=== PATIENT | female | born 1930 | race Caucasian/White ===

== ENCOUNTER → 2019-05-14 | Outpatient (CLI) | payer MEDICARE ==
[~2019-05-14] MED LIST: /LOR25TA PO; AMBI5TAB PO; AMBIEN PO; ASPI81TA26 PO; ASPI81TA85 PO; ASPI81TA90 PO; BRIM1OPD OU; BRIM2OPD OU; BRIMONIDINE OU; BUTR5DIS2 TD; CALC1TAB21 PO; CALCTAB68 PO; CARV12.5 PO; CELE40TA PO; CITA20TA6 PO; CORE25TA PO; COZA100T2 PO; CYCL10TA PO; DORZ2OPD OU; EXTR500C4 PO; FENO134C PO; GABA-843 PO; GABA100C PO; GABAPOW41 PO; HYDR12.56 PO; HYDR12CA PO; LATA0.0013 OU; LOSA100T50 PO; LOVAZA PO; LUMI0.01 OU; METF500T13 PO; METFORMIN PO; MIRA0.254 PO; MIRA0.5T PO; OMEG100011 PO; OMEG340C PO; OXYC1TAB23 PO; OXYC5CAP28 PO; PANT40TA2 PO; PERC5TAB12 PO; PERCOCET PO; PLAV1TAB2 PO; PLAVIX PO; PRAV40TA2 PO; PROT1TAB2 PO; TYLE325T5 PO; ULTR37.539 PO; VOLT1GEL15 TD; VOLT1GEL15 TOP; [UNRECOGNIZED DRUG - CODE] OS
--- NOTE | 2019-05-14 13:31 | REP ---
CT of the temporal bones without contrast Indication: Sensorineural hearing loss, unilateral, 1 ear, with restored hearing contralateral side. Comparison: None Technique: Axial CT of both temporal bones was performed without contrast. Right and left coronal and axial bone reformatted images were provided. Findings: On the right side, the external auditory canal is patent. The tympanic membrane is unremarkable. The middle ear cavity is clear. The ossicles are intact. The inner ear structures, including the semicircular canals, vestibule, and cochlea are unremarkable. The vestibular aqueduct is not enlarged. The right facial nerve has a normal course. The course of the ICA and position of the jugular bulb are normal. The right mastoid air cells are clear. On the left side, the external auditory canal is patent. The tympanic membrane is unremarkable. The middle ear cavity is clear. The ossicles are intact. The inner ear structures, including the semicircular canals, vestibule, and cochlea are unremarkable. The vestibular aqueduct is not enlarged. The left facial nerve has a normal course. The course of the ICA and position of the jugular bulb are normal. There is partial opacification of the left mastoid air cells inferiorly. No definite abnormality is seen within the visualized portion of the brain parenchyma. There is dense intracranial vascular calcification. The visualized paranasal sinuses are clear. Impression: Partial opacification of the left mastoid air cells inferiorly. Dense intracranial vascular calcification. Electronically Signed by Daphney Howell MD 05/14/2019 01:22 P
== END ==
LOC: M RAD 10:58
PROVIDERS: ATTEND Otolaryngology
DX: H90.A22 Sensorineural hearing loss, unilateral, left ear, with restricted hearing on the contralateral side (principal); I67.2 Cerebral atherosclerosis

== ENCOUNTER 2021-04-05 11:07 | Emergency (ER) | payer MEDICARE ==
[~2021-04-05] VITALS: Ht 147.3 cm; Wt 53.6 kg
[~2021-04-05 11:07] MED LIST changes: -ASPI81TA85 PO; +ASPI81TA86 PO; +CYCL-707 PO; -CYCL10TA PO; +GABA-282 PO; -GABA-843 PO
[2021-04-05] MEDS ORDERED: TRAM50TA2 PO (12:03)
[2021-04-05] MEDS ORDERED: OMEP40CA4 PO (12:03)
[2021-04-05] MEDS ORDERED: XANA0.25 PO (12:03)
[2021-04-05] MEDS ORDERED: AMLO1TAB24 PO (12:03)
[2021-04-05] MEDS ORDERED: ELIQ2.5T PO (12:03)
[2021-04-05] MEDS ORDERED: LEVO88TA3 PO (12:03)
[2021-04-05] MEDS ORDERED: FURO40TA2 PO (12:03)
[2021-04-05] MEDS ORDERED: COZA100T2 PO (12:03)
[2021-04-05 12:25] LABS: BASO # 0.1 10^3/uL (0.0-0.2); BASO % 0.6 % (0.0-1.0); EOS # 0.4 10^3/uL (0.0-0.5); EOS % 4.4 % (0.0-3.0); HEMATOCRIT 36.9 % (36.0-47.0); HEMOGLOBIN 11.6 g/dl (12.0-15.5); LYMPH % 22.1 % (24.0-44.0); MEAN CORPUSCULAR HEMOGLOBIN 29.9 pg (27.0-33.0); MEAN CORPUSCULAR HGB CONC 31.4 g/dl (32.0-36.5); MEAN CORPUSCULAR VOLUME 95.1 fl (80.0-96.0); MONO # 0.8 10^3/uL (0.0-0.8); MONO % 8.8 % (2.0-8.0); NEUTROPHILS # 5.7 10^3/uL (1.5-8.5); NEUTROPHILS % 63.9 % (36.0-66.0); PLATELET COUNT, AUTOMATED 244 10^3/uL (150-450); RED BLOOD COUNT 3.88 10^6/uL (4.00-5.40)
[2021-04-05 12:35] LABS: INR 1.36; PROTHROMBIN TIME 17.2 SECONDS (12.7-14.5)
[2021-04-05 12:36] LABS: PARTIAL THROMBOPLASTIN TIME 42.7 SECONDS (25.9-37.0)
[2021-04-05 12:53] LABS: CALCIUM LEVEL 8.8 MG/DL (8.8-10.2); CREATININE FOR GFR 1.35 MG/DL (0.55-1.30); GLOMERULAR FILTRATION RATE 39.3 (>32)
--- NOTE | 2021-04-05 12:56 | ECGEPIP ---
[facility] - ED Test Date: 2021-04-05 Pat Name: KAYLEIGH STEEL Department: Room: - Gender: Female Wall Man: ANA : 1930 Requested By: Abdiaziz Abrams Order Number: [id number] Reading MD: Abdiaziz Abrams Measurements Intervals Allen Rate: 64 P: AR: QRS: 68 QRSD: 152 T: -20 QT: 484 QTc: 499 Interpretive Statements sinus rhtyhm RAD Right bundle branch block T wave abnormality, consider inferior ischemia cw 08/19/16 rate decreased axis change rule out ischemia Electronically Signed on 04-05-2021 12:56:30 EDT by Abdiaziz Abrams
[2021-04-05 13:09] LABS: BILIRUBIN, URINE MANUAL NEGATIVE (NEGATIVE); GLUCOSE, URINE (UA) MANUAL NEGATIVE (NEGATIVE); KETONE, URINE MANUAL NEGATIVE (NEGATIVE); UROBILINOGEN, URINE MANUAL NORMAL (NORMAL)
[2021-04-05 13:17] LABS: RBC, URINE TNTC /hpf (0-3)
[2021-04-05 13:18] LABS: BACTERIA, URINE LARGE AMOUNT; SQUAMOUS EPITHELIAL CELL URINE SMALL AMOUNT /hpf (SMALL AMT)
[2021-04-05 13:19] LABS: HYALINE CAST, URINE NONE SEEN /lpf (0-1)
[2021-04-05] MEDS ORDERED: MACR100C43 PO (14:12)
[2021-04-05 14:33] VITALS: BP 167/73
== END 2021-04-05 14:37 | disposition home or self-care (01) ==
LOC: M ED 11:07
DX: R31.0 Gross hematuria (principal); I10 Essential (primary) hypertension; J44.9 Chronic obstructive pulmonary disease, unspecified; E07.9 Disorder of thyroid, unspecified; I25.10 Atherosclerotic heart disease of native coronary artery without angina pectoris; Z85.3 Personal history of malignant neoplasm of breast; Z79.899 Other long term (current) drug therapy; Z79.82 Long term (current) use of aspirin; Z79.890 Hormone replacement therapy; Z79.01 Long term (current) use of anticoagulants